=== PATIENT | male | born 1985 | race Caucasian/White ===

== ENCOUNTER 2017-11-06 17:22 | Emergency (ER) | payer OTHER ==
[2017-11-06 21:45] LABS: ADD MAN DIFF? NO
[2017-11-06 21:49] LABS: WHITE BLOOD COUNT 7.1 10^3/ul (4.8-10.8)
[2017-11-06 21:49] LABS: BASOPHILS % 0.4 % (0.0-2.0); EOSINOPHILS # 0.1 10^3/ul (0.0-0.5); EOSINOPHILS % 1.3 % (0.0-7.0); HEMATOCRIT 42.1 % (42.0-52.0); HEMOGLOBIN 14.2 g/dl (14.0-18.0); LYMPHOCYTES % 28.1 % (15.0-51.0); MEAN CORPUSCULAR HGB CONC 33.7 g/dl (32.0-37.0); MEAN CORPUSCULAR VOLUME 97.9 fl (82.0-101.0); MEAN PLATELET VOLUME 9.4 fl (7.4-10.4); MONOCYTE # 0.7 10^3/ul (0.3-0.9); MONOCYTES % 10.2 % (0.0-11.0); NEUTROPHIL # 4.2 10^3/ul (1.6-7.5); NEUTROPHILS % 59.9 % (39.0-77.0); PLATELET COUNT 363 10^3/UL (140-415); RED CELL DISTRIBUTION WIDTH 13.2 % (11.5-14.5)
[2017-11-06] MEDS: LORAZEPAM 1 MG TAB PO (21:54)
[2017-11-06] MEDS: FAMOTIDINE 20 MG INJ IV (21:54)
[2017-11-06] MEDS: SOD CHLORIDE 0.9% 1,000 ML IV (21:55)
[2017-11-06 22:08] LABS: ALANINE AMINOTRANSFERASE 112 IU/L (13-69); ALBUMIN 4.6 g/dl (3.3-4.9); ALBUMIN/GLOBULIN RATIO 1.53; ALKALINE PHOSPHATASE 72 IU/L (42-121); ANION GAP 20 (8-16); ASPARTATE AMINO TRANSFERASE 74 IU/L (15-46); BLOOD UREA NITROGEN 11 mg/dl (7-20); CALCIUM 9.1 mg/dl (8.4-10.2); CARBON DIOXIDE 26 mmol/L (21-31); CHLORIDE 104 mmol/L (97-110); CREATININE 1.06 mg/dl (0.61-1.24); GLUCOSE 85 mg/dl (70-220); LIPASE 165 U/L (23-300); POTASSIUM 4.4 mmol/L (3.5-5.1); SODIUM 146 mmol/L (135-144); TOTAL PROTEIN 7.6 g/dl (6.1-8.1)
== END 2017-11-06 23:04 | disposition home or self-care (01) ==
LOC: FTE 17:22
DX: R10.11 Right upper quadrant pain (principal); F10.10 Alcohol abuse, uncomplicated
CPT/HCPCS: 36415; 76705; 80053; 83690; 85025; 96374; 99285-25

== ENCOUNTER 2018-02-06 00:19 | Emergency (ER) | payer SELFPAY, OTHER | END 2018-02-06 00:57 | disposition left against medical advice (07) | LOC: FTE 00:19 | DX: Z53.21 Procedure and treatment not carried out due to patient leaving prior to being seen by health care provider (principal) ==

== ENCOUNTER 2018-02-07 07:45 | Emergency (ER) | payer OTHER ==
[2018-02-07] MEDS: LORAZEPAM 1 MG TAB PO (08:23)
[2018-02-07] MEDS: ONDANSETRON (ODT) 4 MG TAB ODT (08:23)
[2018-02-07 08:37] LABS: ADD MAN DIFF? NO
[2018-02-07 08:39] LABS: WHITE BLOOD COUNT 4.6 10^3/ul (4.8-10.8)
[2018-02-07 08:39] LABS: BASOPHIL # 0.1 10^3/ul (0.0-0.1); BASOPHILS % 1.1 % (0.0-2.0); EOSINOPHILS # 0.1 10^3/ul (0.0-0.5); HEMATOCRIT 39.3 % (42.0-52.0); HEMOGLOBIN 13.5 g/dl (14.0-18.0); LYMPHOCYTES # 0.8 10^3/ul (0.8-2.9); LYMPHOCYTES % 17.8 % (15.0-51.0); MEAN CORPUSCULAR HEMOGLOBIN 34.3 pg (29.0-33.0); MEAN CORPUSCULAR HGB CONC 34.4 g/dl (32.0-37.0); MEAN CORPUSCULAR VOLUME 99.7 fl (82.0-101.0); MONOCYTE # 0.6 10^3/ul (0.3-0.9); MONOCYTES % 12.1 % (0.0-11.0); NEUTROPHIL # 3.1 10^3/ul (1.6-7.5); NEUTROPHILS % 66.8 % (39.0-77.0); PLATELET COUNT 311 10^3/UL (140-415); RED BLOOD COUNT 3.94 10^6/ul (4.70-6.10)
[2018-02-07 08:58] LABS: ALANINE AMINOTRANSFERASE 126 IU/L (13-69); ALBUMIN 4.9 g/dl (3.3-4.9); ALBUMIN/GLOBULIN RATIO 1.36; ALKALINE PHOSPHATASE 78 IU/L (42-121); ANION GAP 21 (8-16); ASPARTATE AMINO TRANSFERASE 112 IU/L (15-46); BILIRUBIN,INDIRECT 0.9 mg/dl (0-1.1); BILIRUBIN,TOTAL 0.9 mg/dl (0.2-1.3); BLOOD UREA NITROGEN 11 mg/dl (7-20); CALCIUM 9.5 mg/dl (8.4-10.2); CARBON DIOXIDE 29 mmol/L (21-31); CHLORIDE 94 mmol/L (97-110); CREATININE 0.83 mg/dl (0.61-1.24); GLUCOSE 93 mg/dl (70-220); LIPASE 337 U/L (23-300); POTASSIUM 3.9 mmol/L (3.5-5.1); SODIUM 140 mmol/L (135-144); TOTAL PROTEIN 8.5 g/dl (6.1-8.1)
== END 2018-02-07 09:38 | disposition home or self-care (01) ==
LOC: FTE 07:45
DX: T18.108A Unspecified foreign body in esophagus causing other injury, initial encounter (principal); R10.13 Epigastric pain; F10.10 Alcohol abuse, uncomplicated; R11.0 Nausea; F17.210 Nicotine dependence, cigarettes, uncomplicated; X58.XXXA Exposure to other specified factors, initial encounter; Y92.9 Unspecified place or not applicable
CPT/HCPCS: 36415; 80053; 83690; 85025; 99283-25